=== PATIENT | female | born 1990 | race Asian ===

== ENCOUNTER 2020-05-16 12:02 | Emergency (ER) | payer MEDICAID, OTHER ==
[~2020-05-16] VITALS: Ht 149.9 cm; Wt 47.1 kg
[2020-05-16] MEDS ORDERED: SODIUM CHLORIDE FLUSH 10ML SYR IVF ONE (12:30)
[2020-05-16] MEDS ORDERED: RISPERDAL (12:30)
[2020-05-16] MEDS ORDERED: VIT B12 PO (12:30)
[2020-05-16] MEDS ORDERED: POTASSIUM (12:30)
[2020-05-16] MEDS ORDERED: SODIUM CHLORIDE 0.9% 1,000ML IVBOLUS ONE (12:30)
[2020-05-16 12:33] LABS: BASOPHILS # (AUTO) 0.02 x10^3/uL (0-0.1); BASOPHILS % (AUTO) 0 % (0-1); EOSINOPHILS # (AUTO) 0.02 x10^3/uL (0-0.4); EOSINOPHILS % (AUTO) 0 % (1-7); LYMPHOCYTES # (AUTO) 1.32 x10^3/uL (1-3.4); LYMPHOCYTES % (AUTO) 20 % (22-44); MD NO; MEAN CORPUSCULAR HEMOGLOBIN 28.2 pg (27.0-34.8); MEAN CORPUSCULAR HGB CONC 32.2 g/dL (32.4-35.8); MEAN CORPUSCULAR VOLUME 87.6 fL (80-100); MEAN PLATELET VOLUME 7.2 fL (7.4-10.4); MONOCYTES % (AUTO) 11 % (2-9); NEUTROPHILS # (AUTO) 4.53 x10^3/uL (1.8-6.8); NEUTROPHILS % (AUTO) 69 % (42-75); PLATELET COUNT 251 x10^3/uL (130-400); RED BLOOD COUNT 4.69 x10^6/uL (3.82-5.3); RED CELL DISTRIBUTION WIDTH 12.6 % (9.6-15.2)
--- NOTE | 2020-05-16 12:34 | NUR ---
PER EMS- PARENTS FOUND PT PASSED OUT ON INDOOR TRAMPOLINE; PARENTS SPEAK LIMITED BELARUSIAN; TRIED TO INFORM EMS PT HAS HX OF SCHIZOPHRENIA AND TAKES RESIPERDAL BUT PT DENIED BOTH; PT HAS PROBLEMS W/ NEIGHBORS AND [facility] AND IS GETTING LEGAL INVOLVED. PT IS QUESTIONABLE HISTORIAN; STATES REPORTS HX OF KIDNEY FAILURE - THAT RESOLVED, SCOLIOSIS, TUMOR REMOVED, EYE COLOR IMPLANT IN [place] TO GET BLUE EYES, POTASSIUM DEFICIENCY. RESP EVEN & UNLABORED, SPEECH CLEAR, OPENS EYES ONLY WHEN INSTRUCTED, ABLE TO MOVE ALL EXTREMETIES W/OUT DIFFICULTY, QUICKLY ALTERNATES TOPICS WHEN TALKING.
[2020-05-16 12:45] LABS: ANION GAP 10 mmol/L (5-15); CALCIUM 8.9 mg/dL (8.5-10.1); CHLORIDE 109 mmol/L (98-107)
[2020-05-16 12:50] LABS: ALANINE AMINOTRANSFERASE 16 U/L (12-78); ALKALINE PHOSPHATASE 52 U/L (45-117); BILIRUBIN,TOTAL 0.6 mg/dL (0.2-1.0); CREATININE 0.55 mg/dL (0.55-1.02); TOTAL PROTEIN 7.2 g/dL (6.4-8.2)
--- NOTE | 2020-05-16 13:39 | NUR ---
PT RESTING QUIETLY ON BED, MONITORING CONTINUING. PT REPORTS FEELING SLIGHTLY BETTER. PT'S DAD NOW AT BS.
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
[2020-05-16 13:56] VITALS: BP 124/75
[2020-05-16 14:05] LABS: MICROSCOPIC NOT IND
[2020-05-16 14:16] LABS: AMPHETAMINE SCREEN, URINE Negative (Negative); BARBITURATE SCREEN, URINE Negative (Negative); BENZODIAZEPINE SCREEN, URINE Negative (Negative); CANNABINOID SCREEN, URINE Negative (Negative); COCAINE SCREEN, URINE Negative (Negative); METHADONE SCREEN, URINE Negative (Negative); OPIATE SCREEN, URINE Negative (Negative)
--- NOTE | 2020-05-16 15:10 | NUR ---
SIGNED LEGAL HOLD DOCUMENT ON CHART
[2020-05-16] MEDS ORDERED: POTASSIUM CHLORIDE 20 MEQ TAB.ER.PRT PO ONE (15:30)
--- NOTE | 2020-05-16 15:33 | NUR ---
REPORT FROM JAKE. PT TRANSFERRED TO SECURE ROOM. BELONGINGS IN SECURE LOCKER
[2020-05-16] MEDS ORDERED: POTASSIUM CHLORIDE 20 MEQ TAB.ER.PRT ONE (15:34)
--- NOTE | 2020-05-16 15:35 | NUR ---
Kdur 40meq TABS GIVEN TO JOSE JUAN RAMOS FOR ADMINISTRATION.
--- NOTE | 2020-05-16 16:30 | NUR ---
PT RESTING, RN INFORMED PT OF LEGAL 2K AND QUESTIONS.
--- NOTE | 2020-05-16 17:34 | NUR ---
REPORT TO ABEBA BOYD
[2020-05-16] MEDS ORDERED: LORazepam 1MG TABLET ONE (18:15)
[2020-05-16] MEDS ORDERED: LORazepam 1MG TABLET PO ONE (18:30)
[2020-05-17] MEDS ORDERED: ALBU18HF PO (15:36)
== END 2020-05-16 15:39 ==
LOC: ED 14:19
DX: F23 Brief psychotic disorder (principal); R42 Dizziness and giddiness; R55 Syncope and collapse
CPT/HCPCS: 36415; 80053; 80307; 81003; 83735; 84443; 84703; 85025; 93005; 96360; 96361; 99284; J7030

== ENCOUNTER 2020-05-16 16:56 | Inpatient (IN) | payer MEDICAID ==
[~2020-05-16] VITALS: Ht 149.9 cm; Wt 42.5 kg
[~2020-05-16 16:56] MED LIST: POTASSIUM; RISPERDAL; VIT B12 PO
[2020-05-16] MEDS ORDERED: DOCUSATE 100 MG CAPSULE PO PRN (17:30)
[2020-05-16] MEDS ORDERED: ONDANSETRON ODT 4 MG PO PRN (17:30)
[2020-05-16] MEDS ORDERED: BISACODYL 10 MG SUPP PR PRN (17:30)
[2020-05-16] MEDS ORDERED: HYDROXYZINE PAMOATE 50MG CAP PO PRN (17:30)
[2020-05-16] MEDS ORDERED: POLYETHYLENE GLYCOL 17 GM PACKET PO PRN (17:30)
[2020-05-16] MEDS ORDERED: OLANZAPINE 10 MG INJ IM ONE (19:00)
[2020-05-16] MEDS ORDERED: PLEASE ENTER HEIGHT AND WEIGHT MC SCH (19:00)
[2020-05-16 19:30] VITALS: BP 0/0
[2020-05-16] MEDS ORDERED: RISPERIDONE 1 MG TABLET PO SCH (21:00)
[2020-05-16 23:47] VITALS: BP 115/80
[2020-05-17 07:28] VITALS: BP 109/69
[2020-05-17 08:43] LABS: CHOL/HDL RATIO 2.8; LDL/HDL RATIO 1.6 (0.5-3.0)
[2020-05-17] MEDS ORDERED: ALBU18HF PO (15:36)
[2020-05-17] MEDS: DIVALPROEX 500 MG TAB.ER.24H PO SCH (18:30)
[2020-05-17] MEDS: LORazepam 1MG TABLET PO PRN (18:41)
[2020-05-17 20:00] VITALS: BP 106/65
[2020-05-17] MEDS: QUETIAPINE 25MG TABLET PO SCH (21:00)
[2020-05-18 07:29] VITALS: BP 109/65
[2020-05-18 08:34] LABS: ANION GAP 6 mmol/L (5-15); CALCIUM 9.3 mg/dL (8.5-10.1); CHLORIDE 111 mmol/L (98-107); CREATININE 0.63 mg/dL (0.55-1.02)
[2020-05-18] MEDS: QUETIAPINE 25MG TABLET PO SCH ×3 (08:39→20:26)
[2020-05-18] MEDS: DIVALPROEX 500 MG TAB.ER.24H PO SCH ×3 (08:39→20:26)
[2020-05-18] MEDS: LORazepam 1MG TABLET PO PRN ×3 (08:52→22:07)
[2020-05-18] MEDS ORDERED: OLANZAPINE 10 MG INJ IM ONE (15:30)
[2020-05-18] MEDS: ACETAMINOPHEN 325 MG TABLET PO PRN (22:07)
[2020-05-19 07:27] VITALS: BP 110/74
[2020-05-19] MEDS: DIVALPROEX 500 MG TAB.ER.24H PO SCH ×2 (08:39→21:00)
[2020-05-19] MEDS: QUETIAPINE 25MG TABLET PO SCH (08:43)
[2020-05-19 19:36] VITALS: BP 114/76
[2020-05-19] MEDS: QUETIAPINE 100MG TABLET PO SCH (20:00)
[2020-05-19] MEDS: ACETAMINOPHEN 325 MG TABLET PO PRN (20:16)
[2020-05-19] MEDS: LORazepam 1MG TABLET PO PRN (20:16)
[2020-05-20 07:00] VITALS: BP 110/72
[2020-05-20] MEDS: DIVALPROEX 500 MG TAB.ER.24H PO SCH ×2 (08:56→20:14)
[2020-05-20] MEDS: QUETIAPINE 100MG TABLET PO SCH ×2 (08:57→20:14)
[2020-05-20] MEDS: LORazepam 1MG TABLET PO PRN ×2 (09:57→20:14)
[2020-05-20 20:03] VITALS: BP 113/72
[2020-05-21 07:21] VITALS: BP 104/68
[2020-05-21] MEDS: LORazepam 1MG TABLET PO PRN (08:25)
[2020-05-21] MEDS: DIVALPROEX 500 MG TAB.ER.24H PO SCH ×2 (08:25→19:39)
[2020-05-21] MEDS: QUETIAPINE 100MG TABLET PO SCH ×2 (08:26→19:39)
[2020-05-21] MEDS ORDERED: LORazepam 0.5MG TABLET PO PRN (12:30)
[2020-05-21 19:36] VITALS: BP 111/74
[2020-05-22 07:22] VITALS: BP 100/66
[2020-05-22] MEDS: QUETIAPINE 100MG TABLET PO SCH ×2 (09:00→21:42)
[2020-05-22] MEDS: DIVALPROEX 500 MG TAB.ER.24H PO SCH ×2 (09:04→19:58)
[2020-05-22 19:55] VITALS: BP 94/61
[2020-05-22 22:20] VITALS: BP 100/64
[2020-05-23 06:54] VITALS: BP 99/67
[2020-05-23] MEDS: DIVALPROEX 500 MG TAB.ER.24H PO SCH (08:58)
[2020-05-23] MEDS: QUETIAPINE 100MG TABLET PO SCH (09:00)
[2020-05-23] MEDS ORDERED: HYDR50CA2 PO (11:03)
[2020-05-23] MEDS ORDERED: DIVA500T4 PO (11:03)
== END 2020-05-23 13:50 | disposition home or self-care (01) | DRG 885 ==
LOC: 3E 18:27
PROVIDERS: ADMIT Psychiatry & Neurology Psychosomatic Medicine; ATTEND Psychiatry & Neurology Psychosomatic Medicine
DX: F31.9 Bipolar disorder, unspecified (principal); F20.9 Schizophrenia, unspecified; R56.9 Unspecified convulsions; Z79.899 Other long term (current) drug therapy; Z82.49 Family history of ischemic heart disease and other diseases of the circulatory system; Z91.14 Patient's other noncompliance with medication regimen; Z91.19 Patient's noncompliance with other medical treatment and regimen; Z88.8 Allergy status to other drugs, medicaments and biological substances
CPT/HCPCS: 36415; 71045; 80048; 80061; 83735; 93005; Q0162; Q0177

== ENCOUNTER 2020-09-17 22:52 | Emergency (ER) | payer MEDICAID ==
[~2020-09-17] VITALS: Ht 149.9 cm; Wt 45.6 kg
[~2020-09-17 22:52] MED LIST changes: +ALBU18HF PO; +DIVA500T4 PO; +HYDR50CA2 PO
[2020-09-17] MEDS ORDERED: LORazepam 2 MG/ML, 1ML IVPush ONE (23:30)
[2020-09-17] MEDS ORDERED: ZIPRASIDONE 20 MG INJ IM ONE ×2 (23:30→23:31)
[2020-09-17] MEDS ORDERED: LORazepam 2 MG/ML, 1ML ONE (23:31)
--- NOTE | 2020-09-17 23:45 | NUR ---
Poppy Hernandez [phone] (cell)
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
--- NOTE | 2020-09-18 | NUR ---
Mom took all of patient belongings home with her, including cell phone, purse and clothes
[2020-09-18 00:11] LABS: BASOPHILS % (AUTO) 1 % (0-1); EOSINOPHILS % (AUTO) 0 % (1-7); LYMPHOCYTES % (AUTO) 18 % (22-44); MEAN CORPUSCULAR HEMOGLOBIN 28.4 pg (27.0-34.8); MEAN CORPUSCULAR HGB CONC 32.8 g/dL (32.4-35.8); MEAN PLATELET VOLUME 7.2 fL (7.4-10.4); MONOCYTES % (AUTO) 11 % (2-9); NEUTROPHILS % (AUTO) 70 % (42-75); PLATELET COUNT 270 x10^3/uL (130-400); RED BLOOD COUNT 4.81 x10^6/uL (3.82-5.3); RED CELL DISTRIBUTION WIDTH 12.1 % (9.6-15.2)
[2020-09-18 00:13] LABS: MD NO
[2020-09-18 00:22] LABS: ALBUMIN 4.1 g/dL (3.4-5.0); ANION GAP 5 mmol/L (5-15); CALCIUM 9.5 mg/dL (8.5-10.1); CHLORIDE 109 mmol/L (98-107); CREATININE 0.81 mg/dL (0.55-1.02)
[2020-09-18 00:25] LABS: SALICYLATE LEVEL < 1.7 mg/dL (2.8-20.0)
--- NOTE | 2020-09-18 00:28 | NUR ---
[facility] AT [facility]
--- NOTE | 2020-09-18 01:58 | NUR ---
U nurse down to evluate patient
[2020-09-18 03:09] VITALS: BP 98/56
--- NOTE | 2020-09-18 03:48 | NUR ---
Pt up and ambulated with an untseady gait and 1 assist to the restroom. Patient states "I feel so much better now" Patient unable to tell senior underwriter why she is in the hospital. Manjula jett
[2020-09-18 04:14] LABS: AMPHETAMINE SCREEN, URINE Negative (Negative); BARBITURATE SCREEN, URINE Negative (Negative); BENZODIAZEPINE SCREEN, URINE Negative (Negative); CANNABINOID SCREEN, URINE Negative (Negative); COCAINE SCREEN, URINE Negative (Negative); METHADONE SCREEN, URINE Negative (Negative); OPIATE SCREEN, URINE Negative (Negative)
--- NOTE | 2020-09-18 04:15 | NUR ---
PSYCH PACKET FAXED TO [facility], [facility], [facility]
--- NOTE | 2020-09-18 04:39 | NUR ---
HARVEY FROM [facility] DR. SEE ACCEPTING PT TO [facility] AT THIS TIME
--- NOTE | 2020-09-18 04:56 | NUR ---
Report given to Digna MANZANO at [facility] Mom called and updated regarding patient being placed at [facility]
--- NOTE | 2020-09-18 05:09 | NUR ---
[facility] ETA [id number]
--- NOTE | 2020-09-18 05:15 | NUR ---
Patient picked up by [facility] at this time
== END 2020-09-18 05:17 ==
LOC: ED 09-18 03:19
DX: F23 Brief psychotic disorder (principal); F31.9 Bipolar disorder, unspecified
CPT/HCPCS: 36415; 80048; 80299; 80307; 80320; 80329; 82040; 84703; 85025; 96372; 96374; 99285; J2060; J3486; G0480

== ENCOUNTER 2020-10-09 17:26 | Emergency (ER) | payer MEDICAID ==
[~2020-10-09] VITALS: Ht 149.9 cm; Wt 47.0 kg
[2020-10-09] MEDS ORDERED: HYDR-826 PO (17:38)
[2020-10-09] MEDS ORDERED: DIVA-61 PO (17:38)
[2020-10-09 18:30] VITALS: BP 104/65
--- NOTE | 2020-10-09 18:31 | NUR ---
PT RESTING ON GURNEY, IN NAD, NO SEIZURE ACTIVITY NOTED. VSS. PT'S FATHER AT BEDSIDE.
== END 2020-10-09 19:05 | disposition home or self-care (01) ==
LOC: ED 17:42
DX: H51.8 Other specified disorders of binocular movement (principal)
CPT/HCPCS: 99283

== ENCOUNTER 2021-04-22 09:32 | Emergency (ER) | payer MEDICAID ==
[~2021-04-22] VITALS: Ht 149.9 cm; Wt 43.0 kg
[~2021-04-22 09:32] MED LIST changes: +DIVA-61 PO; +HYDR-826 PO
--- NOTE | 2021-04-22 09:38 | NUR ---
TASK RN: THIS IS A 30 YO F BIB EMS FROM W/ C/O MULTIPLE SEIZURES. PT SPEAKING NORMALLY, THEN STARTS SHAKING AND SPEAKING GIBBERISH, GIBBERISH ABLE TO BE INTERUPTED AND REDIRECTED. WHEN ASKED WHAT BRINGS PT IN TODAY, PT STATES "SORRY PSYCHOTIC EPISODE, SEIZURES AND STUFF AND TROUBLE REMEMBERING". PT REPORTS ONLY PSYCHIATRIC HX IS ANXIETY. DENIES SI/HI. PT EASILY REORIENTED. BRIAN LEWIS.
[2021-04-22] MEDS ORDERED: ZONI25CA16 PO (09:48)
--- NOTE | 2021-04-22 09:48 | NUR ---
TASK RN: PT ANSWERS QUESTIONS, ABLE TO STOP SHAKING TO TELL THIS RN HER WEIGHT. THEN CONTINUES TO SPEAK GIBBERISH AND SHAKE BODY.
--- NOTE | 2021-04-22 10:21 | NUR ---
PT RESTING IN BED. DR. RIVERA EVALUATED. SAFETY PRECAUTIONS IN PLACES. SITTER AT BEDSIDE. VSS.NAD.
--- NOTE | 2021-04-22 10:51 | NUR ---
MOTHER AT BEDSIDE.
[2021-04-22] MEDS ORDERED: LORazepam 2 MG/ML, 1ML ONE (11:05)
--- NOTE | 2021-04-22 11:09 | NUR ---
CARLOS SANDHU PRECIPITATOR OPERATOR TO BEDSIDE. FOR EVALUATION.
[2021-04-22] MEDS ORDERED: LORazepam 2 MG/ML, 1ML IM ONE (11:30)
--- NOTE | 2021-04-22 12:24 | NUR ---
pt asleep with even and unlabored respirations. jayant. gail.
--- NOTE | 2021-04-22 15:00 | NUR ---
Pt awoke from sleep on own. Pt pleasent, calm and cooperative. Pt remained on pulse ox while sleeping and now that she is awake, HR from 90s to 130s.
[2021-04-22 15:01] VITALS: BP 120/65
== END 2021-04-22 15:52 | disposition home or self-care (01) ==
LOC: ED 15:00
DX: F31.9 Bipolar disorder, unspecified (principal); F39 Unspecified mood [affective] disorder
CPT/HCPCS: 96372; 99284; J2060

== ENCOUNTER 2021-04-23 17:50 | Observation (INO) | payer MEDICAID ==
[~2021-04-23] VITALS: Ht 149.9 cm; Wt 41.5 kg
[2021-04-23 17:50] VITALS: BP 107/63
[~2021-04-23 17:50] MED LIST changes: +ZONI25CA16 PO
--- NOTE | 2021-04-23 17:50 | NUR ---
JORGE A FROM HOME AFTER FAMILY CALLED CONCERNED THAT UNABLE TO SLEEP OR EAT, HX MANIC DEPRESSION/ANXIETY, DENIES SI/HI OR ETOH/DRUGS, PT CHANGED INTO GOWN, COMFORT MEASURES PROVIDED, CALL LIGHT WITHIN REACH.
[2021-04-23] MEDS ORDERED: PLEASE ENTER HEIGHT AND WEIGHT MC SCH (18:00)
[2021-04-23] MEDS ORDERED: LORazepam 1MG TABLET PO ONE (18:00)
[2021-04-23] MEDS ORDERED: LORazepam 1MG TABLET ONE (18:03)
--- NOTE | 2021-04-23 18:10 | NUR ---
PT MEDICATED PER EMAR, PARENTS ARRIVED & REPORTED TO JUNIE (REMI) THAT PT PURPOSELY TOOK 25 TABS OF RX'D ZONISAMIDE LAST NIGHT, DR BELLAMY NOTIFIED.
[2021-04-23 18:28] LABS: BASOPHILS % (AUTO) 0 % (0-1); EOSINOPHILS % (AUTO) 0 % (1-7); LYMPHOCYTES % (AUTO) 12 % (22-44); MEAN CORPUSCULAR HEMOGLOBIN 27.7 pg (27.0-34.8); MEAN CORPUSCULAR HGB CONC 32.5 g/dL (32.4-35.8); MONOCYTES % (AUTO) 9 % (2-9); NEUTROPHILS % (AUTO) 78 % (42-75); PLATELET COUNT 285 x10^3/uL (130-400); RED BLOOD COUNT 4.94 x10^6/uL (3.82-5.3); RED CELL DISTRIBUTION WIDTH 13.5 % (9.6-15.2)
[2021-04-23 18:35] LABS: ALBUMIN 4.3 g/dL (3.4-5.0); ANION GAP 10 mmol/L (5-15); CALCIUM 9.4 mg/dL (8.5-10.1); CHLORIDE 114 mmol/L (98-107)
[2021-04-23 18:37] LABS: SALICYLATE LEVEL < 1.7 mg/dL (2.8-20.0)
[2021-04-23 18:41] LABS: ALANINE AMINOTRANSFERASE 13 U/L (12-78); ALKALINE PHOSPHATASE 56 U/L (45-117); BILIRUBIN,TOTAL 0.7 mg/dL (0.2-1.0); CREATININE 0.92 mg/dL (0.55-1.02); TOTAL PROTEIN 7.7 g/dL (6.4-8.2)
--- NOTE | 2021-04-23 19:05 | NUR ---
REPORT TO CHANTE MANZANO
--- NOTE | 2021-04-23 19:52 | NUR ---
PT MOVED TO DIFFERENT ROOM TO BE IN LINE OF SIGHT OF SITTER, PT WANTING TO TALK TO PARENTS, PT HYPERVERBAL, PT A/OX3, PT CURRENTLY IN HALLWAY USING PHONE WITH SITTER IN LINE OF SIGHT
--- NOTE | 2021-04-23 20:55 | NUR ---
PT BEHAVIOR VERY MANIC AT THIS TIME, PT TRIED TO RUN OUT OF THE ROOM, PT TALKING EXTREMELY FAST AND TALKING IN CIRCLES, PT REQUESTING IM SHOT OF MD MAURILIO NOTIFED
[2021-04-23] MEDS ORDERED: LORazepam 2 MG/ML, 1ML ONE (20:58)
[2021-04-23] MEDS ORDERED: OLANZAPINE 5 MG TABLET ONE (20:58)
[2021-04-23] MEDS ORDERED: OLANZAPINE 10 MG TABLET PO ONE (21:00)
[2021-04-23] MEDS ORDERED: LORazepam 2 MG/ML, 1ML IM ONE (21:00)
--- NOTE | 2021-04-23 21:30 | NUR ---
PT RAN OUT OF ROOM MULTIPLE TIMES, THIS RN TRIED TO REDIRECT PT BACK INTO HER ROOM, PT REFUSING TO GO BACK IN TO ROOM, PT CLAIMING SHE IS NOT ON A LEGAL HOLD WHEN IN FACT SHE IS, THIS RN TRIED TO GET PT BACK INTO ROOM VERBALLY BUT PT REFUSED, SECURITY CALLED AND GOT PT BACK INTO HER ROOM, NOTIFIED, SIGNED PAPERWORK TO RESTRAIN PT UNTIL SHE IS CALM AND NO LONGER TRYING TO RUN AWAY
--- NOTE | 2021-04-23 22:00 | NUR ---
PT TAKEN OUT OF BILATERAL WRIST RESTRAINTS, LEG RESTRAINTS REMAIN IN PLACE, SITTER IN LINE OF SIGHT, PT NAD AT THIS TIME
--- NOTE | 2021-04-23 22:00 | NUR ---
THIS RN WALKED BY ROOM AND PT WAS SHAKING HER WHOLE BODY, PT STATED WHILE SHAKING HER BODY, "IM HAVING A SEIZURE", THIS RN WENT AND GOT ER , ASSESSED PT, MD STATED IT WAS NOT A SEIZURE, PT NAD
--- NOTE | 2021-04-23 22:39 | NUR ---
ALL RESTRAINTS REMOVED AT THIS TIME, PT NAD, PT TRYING TO SLEEP IN BED, SITTER IN LINE OF SIGHT, GARAGE DOORS DOWN FOR PT SAFETY
--- NOTE | 2021-04-23 23:09 | NUR ---
PT ASLEEP IN BED, SITTER IN LINE OF SIGHT, GARAGE DOORS DOWN, PT NAD AT THIS TIME
--- NOTE | 2021-04-24 00:48 | NUR ---
PT ASLEEP IN BED, ALL NEEDS IN REACH, SITTER IN LINE OF SIGHT, GARAGE DOORS DOWN
--- NOTE | 2021-04-24 01:13 | NUR ---
RECEIVED REPORT FROM JOSE JUAN SHARIF
--- NOTE | 2021-04-24 02:04 | NUR ---
PT UP TO BATHROOM, LOOKING FOR HER PHONE, PHONE NOT IN EITHER PT'S BATHROOMS OR IN HER BELONGINGS IN LOCKER. PT TOLD TO CALL HER PARENTS IN THE MORNING. PT RESTING ON GURNEY, DENIES NEEDS AT THIS TIME.
--- NOTE | 2021-04-24 02:15 | NUR ---
BREAK RN: PT SITTING UPRIGHT RESTING COMFORTABLY, NADN. SAFETY PRECAUTIONS IN PLACE, SITTER IN VIEW.
[2021-04-24 02:17] LABS: MICROSCOPIC INDICATED
[2021-04-24 02:21] LABS: AMPHETAMINE SCREEN, URINE Negative (Negative); BARBITURATE SCREEN, URINE Negative (Negative); BENZODIAZEPINE SCREEN, URINE Negative (Negative); CANNABINOID SCREEN, URINE Negative (Negative); COCAINE SCREEN, URINE Negative (Negative); METHADONE SCREEN, URINE Negative (Negative); OPIATE SCREEN, URINE Negative (Negative)
--- NOTE | 2021-04-24 03:40 | NUR ---
pt resting on gurney, denies needs at this time.
--- NOTE | 2021-04-24 04:11 | NUR ---
pt resting on gurney, denies needs at this time.
--- NOTE | 2021-04-24 04:22 | NUR ---
[facility] accepts patient. spoke Urmila. Accepting doctor is Dr. Hidalgo.
--- NOTE | 2021-04-24 04:22 | NUR ---
packet faxed to jordan [facility]
--- NOTE | 2021-04-24 04:37 | NUR ---
gave report to [facility] nurse. pt accepted to [facility], awaiting transport
== END 2021-04-24 05:49 ==
LOC: ED 18:20 → EDIP 04-24 01:54
PROVIDERS: ADMIT Emergency Medicine; ATTEND Emergency Medicine
DX: F31.9 Bipolar disorder, unspecified (principal); T42.6X2A Poisoning by other antiepileptic and sedative-hypnotic drugs, intentional self-harm, initial encounter; F20.9 Schizophrenia, unspecified; R06.02 Shortness of breath; Z79.899 Other long term (current) drug therapy
CPT/HCPCS: 36415; 80053; 80299; 80307; 80320; 80329; 81001; 84443; 84703; 85025; 87086; 93005; 96372; 99284; G0378; J2060; G0480